=== PATIENT | male | born 1970 | race Caucasian/White ===

== ENCOUNTER 2020-07-06 07:47 | Emergency (ER) | payer MEDICARE, OTHER ==
[2020-07-06 08:45] LABS: HEMOGLOBIN 14.8 gm/dl (14.0-17.5); RED BLOOD COUNT 4.79 M/UL (4.20-5.50)
[2020-07-06 09:09] LABS: BUN/CREATININE RATIO 11 (0-10)
[2020-07-06] MEDS ORDERED: ZOFRAN4 MG PO (10:26)
== END 2020-07-06 10:34 | disposition home or self-care (01) ==
LOC: ER1 07:47
PROVIDERS: Physician Assistant
DX: R11.2 Nausea with vomiting, unspecified (principal); R06.00 Dyspnea, unspecified; Z20.822 Contact with and (suspected) exposure to COVID-19; Z90.89 Acquired absence of other organs
CPT/HCPCS: 36415; 71045; 80053; 82550; 82553; 83690; 83874; 84484; 85025; 93005; 96374; 99285; J2405; U0002